=== PATIENT | male | born 1965 ===

== ENCOUNTER → 2023-04-03 | Outpatient (CLI) | payer OTHER ==
[~2023-04-03] VITALS: Ht 172.7 cm; Wt 132.9 kg
[~2023-04-03] MED LIST: HYDR-3820 PO; LISI1TAB46 PO; TERA2CAP4 PO
== END | disposition home or self-care (01) ==
LOC: PREOP 05:44
PROVIDERS: ATTEND Surgery
DX: Z01.818 Encounter for other preprocedural examination (principal)